=== PATIENT | male | born 1960 | race Caucasian/White ===

== ENCOUNTER → 2016-12-01 | Outpatient (CLI) | payer OTHER ==
--- NOTE | 2016-12-01 12:44 | DI ---
HISTORY: Left shoulder injury on 10/15/2013 at work. Constant pain that is increased with movement. TECHNIQUE: MR images of the left shoulder were obtained and submitted for interpretation. FINDINGS: There is full thickness complete tearing of the supraspinatus tendon with retraction to th e glenohumeral joint. No significant muscle atrophy is identified. There is high grade partial kolton cular surface tearing of the infraspinatus tendon. There is tearing of the superior glenoid labrum an d intracapsular portion of the biceps tendon. There is acromioclavicular arthrosis and mild stenosis of the subacromial space. IMPRESSION: 1. Full thickness tear of the supraspinatus tendon with retraction to the glenohumeral joint. 2. High grade partial tear of the infraspinatus tendon. 3. Tear of the superior glenoid labrum and biceps tendon.
== END ==
LOC: MRI 10:52
PROVIDERS: ATTEND Orthopaedic Surgery
DX: M19.012 Primary osteoarthritis, left shoulder (principal); S46.012A Strain of muscle(s) and tendon(s) of the rotator cuff of left shoulder, initial encounter
CPT/HCPCS: 73221